=== PATIENT | female | born 1950 ===

== ENCOUNTER 2017-04-03 11:55 | Outpatient (CLI) | payer OTHER | END 2017-04-03 13:51 | disposition home or self-care (01) | LOC: RAD 501 11:55 | DX: J44.1 Chronic obstructive pulmonary disease with (acute) exacerbation (principal) ==

== ENCOUNTER 2020-07-31 12:10 | Outpatient (CLI) | payer OTHER | END 2020-07-31 12:17 | disposition home or self-care (01) | LOC: RAD 12:10 | PROVIDERS: ATTEND Physical Medicine & Rehabilitation | DX: M54.2 Cervicalgia (principal); M54.14 Radiculopathy, thoracic region; M54.5 Low back pain; M16.12 Unilateral primary osteoarthritis, left hip ==

== ENCOUNTER → 2021-01-03 15:00 | Outpatient (CLI) | payer OTHER | END | disposition home or self-care (01) | LOC: PPH VACUNA 15:00 | PROVIDERS: ATTEND Emergency Medicine Pediatric Emergency Medicine | DX: Z23 Encounter for immunization (principal) ==

== ENCOUNTER 2021-07-06 08:00 | Outpatient (CLI) | payer OTHER | END 2021-07-06 08:30 | disposition home or self-care (01) | LOC: PPH VACUNA 08:00 | PROVIDERS: ATTEND Emergency Medicine Pediatric Emergency Medicine | DX: Z23 Encounter for immunization (principal) ==

== ENCOUNTER 2022-09-20 09:22 | Outpatient (CLI) | payer OTHER | END 2022-09-20 09:26 | disposition home or self-care (01) | LOC: SONOGRAMA 09:22 | PROVIDERS: ATTEND Internal Medicine Endocrinology, Diabetes & Metabolism | DX: N28.89 Other specified disorders of kidney and ureter (principal) ==

== ENCOUNTER 2022-09-30 14:51 | Outpatient (CLI) | payer OTHER | END 2022-09-30 15:05 | disposition home or self-care (01) | LOC: RAD 14:51 | DX: M25.512 Pain in left shoulder (principal); M79.662 Pain in left lower leg; T14.90XA Injury, unspecified, initial encounter; W19.XXXA Unspecified fall, initial encounter; Y93.89 Activity, other specified; Y92.89 Other specified places as the place of occurrence of the external cause; Y99.8 Other external cause status ==

== ENCOUNTER 2023-06-05 09:54 | Outpatient (CLI) | payer OTHER | END 2023-06-05 09:55 | disposition home or self-care (01) | LOC: NUCLEAR 09:54 | DX: I82.403 Acute embolism and thrombosis of unspecified deep veins of lower extremity, bilateral (principal); M79.89 Other specified soft tissue disorders; I10 Essential (primary) hypertension ==

== ENCOUNTER 2023-06-06 09:33 | Outpatient (CLI) | payer OTHER | END 2023-06-06 09:34 | disposition home or self-care (01) | LOC: NUCLEAR 09:33 | DX: I82.493 Acute embolism and thrombosis of other specified deep vein of lower extremity, bilateral (principal); I10 Essential (primary) hypertension ==